=== PATIENT | female | born 1945 | race Caucasian/White ===

== ENCOUNTER → 2017-07-03 | Outpatient (CLI) | payer MEDICARE, BC ==
[~2017-07-03] MED LIST: BALSALAZIDE PO; BENTYL10 MG PO; LIBRAX CAPSULE1 EACH PO; Z.0.LEXAPRO20 MG PO; Z.0.PREVACID30 MG PO; [UNRECOGNIZED DRUG - OTHER] PO
--- NOTE | 2017-07-03 10:11 | Diagnostic Imaging Report ---
PROCEDURE:ABDOMINAL ULTRASOUND COMPARISON:[facility], US, US GALLBLADDER, 05/14/2016, 12:54. INDICATIONS:Upper Abdomen Pain FINDINGS: Liver: Measures 13.2 cm in the midclavicular line. Normal hepatic parenchymal echogenicity. No focal mass. Main portal vein: Measures 0.9 cm with normal hepatopedal flow. Gallbladder: Multiple stones within the gallbladder without wall thickening. Common Bile Duct: Measures 0.3 cm with no echogenic filling defect. Sonographic Espinal's sign: Negative Right kidney: Measures 9.9 x 3.7 x 3.6 cm. No solid or cystic mass, echogenic calculi, or hydronephrosis. Normal parenchymal echogenicity. Left kidney: Measures 10.1 x 5.4 x 4.3 cm. No solid or cystic mass, echogenic calculi, or hydronephrosis. Normal parenchymal echogenicity. Spleen: Measures 7.9 x 3.1 x 2.9 cm with no intraparenchymal mass. Pancreas: The visualized portions of the pancreas are normal. Inferior vena cava: Normal. Aorta: Calcification within the aorta. Ascites: None. CONCLUSION: Multiple small gallstones without evidence of cholecystitis. Willian oMya D.O. Dictated by: Willian Moya D.O. on 07/03/2017 at 10:13 Electronically approved by: Willian Moya D.O. on 07/03/2017 at 10:13
== END ==
LOC: US 08:56
PROVIDERS: ATTEND Internal Medicine Gastroenterology
DX: R10.10 Upper abdominal pain, unspecified (principal)
CPT/HCPCS: 76700

== ENCOUNTER → 2017-11-26 | Day surgery (SDC) | payer MEDICARE, BC ==
[2017-11-24 15:59] LABS: BASOPHILS # (AUTO) 0.1 (0.0-0.1); BASOPHILS % 0.6 % (0.0-1.0); EOSINOPHILS # (AUTO) 0.1 (0.0-0.4); EOSINOPHILS % 1.2 % (0.0-6.0); HEMATOCRIT 39.8 % (34.2-44.1); LYMPHOCYTES # (AUTO) 2.6 (1.0-3.2); LYMPHOCYTES % 25.9 % (18.0-39.1); MEAN CORPUSCULAR HEMOGLOBIN 30.4 pg (28-32); MEAN CORPUSCULAR HGB CONC 32.7 g/dL (31-35); MONOCYTES # (AUTO) 0.8 (0.2-0.8); MONOCYTES % 7.6 % (4.4-11.3); NEUTROPHILS # (AUTO) 6.3 (2.1-6.9); NEUTROPHILS % 64.3 % (38.7-80.0); PLATELET COUNT 344 x10e3/uL (140-360); RED BLOOD COUNT 4.28 x10e6/uL (3.6-5.1); RED CELL DISTRIBUTION WIDTH 13.9 % (11.7-14.4)
[~2017-11-26] MED LIST changes: +FENTANYL CITRATE/PF 100MCG/2 ML INJ ONE; +LIPITOR20 MG; +MIDAZOLAM HCL 2 MG/2 ML VIAL ONE; +PROPOFOL IV EMULSION 10 MG/ML 50 ML VIAL ONE
[2017-11-26 12:00] VITALS: BP 121/63
--- NOTE | 2017-11-27 07:11 | Operative Report ---
DATE OF PROCEDURE: November 26, 2017 REFERRING PHYSICIAN: Dr. Norma Mayer. PROCEDURE PERFORMED: Colonoscopy and polypectomy with biopsies. INDICATIONS FOR PROCEDURE: Colorectal cancer screening. History of rectal bleeding. MEDICATION: Patient was done under MAC. Please see anesthesiologist's note. PROCEDURE: With the patient in the left lateral decubitus position, the flexible fiberoptic Olympus colonoscope was inserted into the rectum with ease and advanced all the way to the cecum. It was then withdrawn slowly. Mucosa overlying the cecum appeared to be within normal limits. The ileocecal valve was intubated, and the scope was advanced into the terminal ileum. Mucosa overlying the terminal ileum appeared to be within normal limits. Previously described ulcers in the terminal ileum appeared to have resolved. The mucosa overlying the ascending, transverse and descending revealed no ulcerations. Two polyps were snared, 1 polyp was hot biopsied from the sigmoid colon. There was a cluster of aphthous ulcers in the sigmoid colon that was biopsied. Minimal diverticulosis was noted in the sigmoid colon. Mucosa overlying the rectum revealed some diffuse intense erythema and moderate edema, and biopsies were obtained. The scope was then retroflexed into the distal rectum, and the area around the dentate line appeared to be within normal limits. The scope was then straightened out. It was subsequently withdrawn. Patient tolerated the procedure well. IMPRESSION: 1. Diverticulosis, minimal, sigmoid colon. 2. Sigmoid colon polyps times three, two snared and one hot biopsied. 3. Proctitis, biopsied. PLAN: Follow up histology. Check IBD panel. Check CRP and sed rate. Continue current therapy. Timing of followup colonoscopy pending pathology report. Job#: [id number] EV cc:NORMA MAYER MD
== END | disposition home or self-care (01) ==
LOC: OR 08:59
PROVIDERS: ATTEND Internal Medicine Gastroenterology
DX: K50.90 Crohn's disease, unspecified, without complications (principal); K63.5 Polyp of colon; K57.30 Diverticulosis of large intestine without perforation or abscess without bleeding; K62.89 Other specified diseases of anus and rectum; F41.9 Anxiety disorder, unspecified; J44.9 Chronic obstructive pulmonary disease, unspecified; Z01.810 Encounter for preprocedural cardiovascular examination; Z01.812 Encounter for preprocedural laboratory examination
CPT/HCPCS: 36415 ×2; 45384; 45385; 85025; 85651; 86140; 86256; 86671; 88305; 93005; J2250; 45378; 45380